=== PATIENT | female | born 1960 | race Caucasian/White ===

== ENCOUNTER 2017-11-23 06:54 | Day surgery (SDC) | payer BC ==
[2017-11-23] MEDS ORDERED: Gabapentin 300 MG Cap PO ONE (07:01)
[2017-11-23] MEDS ORDERED: Acetaminophen 500 MG Tab PO ONE (07:01)
[2017-11-23] MEDS ORDERED: Scopolamine 1.5 MG Transdermal Patch TOP ONE (07:01)
[2017-11-23] MEDS: Lactated Ringers 1,000 ML IV SCH ×2 (07:32→10:36)
[2017-11-23] MEDS ORDERED: ceFAZolin 2 GM in Premix Bag 1 BAG IV ONE (07:45)
--- NOTE | 2017-11-23 07:51 | PCM.DCSUM1 ---
Discharge Summary - Hospital Course HPI Initial Comments: s/p left tka for left knee primary osteoarthritis Diagnosis: Stroke: No - Discharge Data Discharge Date: 11/24/17 Discharge Disposition: Home, Self-Care 01 Condition: Good - Patient Summary/Data Operative Procedure(s) Performed: left tka Complications: none Consults: hospitalist service pt/ot Recommended Follow-up Testing/Procedures: 3 week f/u with Dr. Saravia - Patient Instructions Diet: Usual Diet as Tolerated Activity: Apply Ice, As Tolerated, Full Weight Bearing, No Strenuous Activities Driving: Do Not Drive Showering/Bathing: May Shower Wound/Incision Care: Keep Operative Site/Wound Site Clean and Dry Notify Provider of: Fever, Increased Pain, Swelling and Redness, Drainage, Nausea and/or Vomiting Other/Special Instructions: remove aquacell dressing on , November 30. Then replace dressing daily and keep wound clean and dry - Discharge Plan Home Medications: Home Meds Calcium Carbonate/Vitamin D3 [Calcium 600 + Vit D 200] 1 each PO DAILY 11/22/17 [History] Lisinopril/Hydrochlorothiazide [Zestoretic 20-25 mg Tablet] 1 each PO DAILY [History] Multivitamin with Minerals [Multiple Vitamin] 1 tab PO DAILY 11/22/17 [History] atorvaSTATin [Lipitor] 20 mg PO BEDTIME 11/22/17 [History] Azelastine [Optivar 0.05% Ophth Soln] 1 drop EYEBOTH BID 11/23/17 [History] Patient Handouts: Total Knee Replacement, Care After, [id number] Referrals: Carlos Manuel Saravia DO [Physician] - - General Info Functional Status: Reports: Pain Controlled - Review of Systems General: Reports: No Symptoms HEENT: Reports: No Symptoms Pulmonary: Reports: No Symptoms Cardiovascular: Reports: No Symptoms Gastrointestinal: Reports: No Symptoms Genitourinary: Reports: No Symptoms Musculoskeletal: Reports: Leg Pain, Joint Pain, Joint Swelling Skin: Reports: No Symptoms Neurological: Reports: No Symptoms Psychiatric: Reports: No Symptoms - Patient Data Vitals - Most Recent: Last Vital Signs Temp 99.5 F 11/23/17 07:28 Pulse 88 11/23/17 07:28 Resp 15 11/23/17 07:28 BP 142/78 H 11/23/17 07:28 Pulse Ox 99 11/23/17 07:28 Weight - Most Recent: 205 lb ARMEN Results - Last 24 hrs: Microbiology 11/21/17 14:23 MRSA Culture - Preliminary Nasal, Unspecified Gram Positive Cocci Med Orders - Current: Current Medications Lactated Ringer's (Ringers, Lactated) 1,000 mls @ 125 mls/hr IV ASDIRECTED MARY Last Admin: 11/23/17 07:32 Dose: 125 mls/hr Vancomycin HCl 1 gm/ Sodium (Chloride) 250 mls @ 250 mls/hr IV ONETIME ONE Stop: 11/23/17 08:44 Last Admin: 11/23/17 07:32 Dose: 250 mls/hr Sodium Chloride (Saline Flush) 10 ml FLUSH ASDIRECTED PRN PRN Reason: Keep Vein Open Discontinued Medications Acetaminophen (Tylenol Extra Strength) 1,000 mg PO ONETIME ONE Stop: 11/23/17 07:02 Last Admin: 11/23/17 07:28 Dose: 1,000 mg Gabapentin (Neurontin) 300 mg PO ONETIME ONE Stop: 11/23/17 07:02 Last Admin: 11/23/17 07:28 Dose: 300 mg Scopolamine (Transderm-Scop) 1.5 mg TOP ONETIME ONE Stop: 11/23/17 07:02 Last Admin: 11/23/17 07:31 Dose: 1.5 mg - Exam General: Reports: Alert, Oriented HEENT: Reports: Pupils Equal, Pupils Reactive, EOMI, Mucous Membr. Moist/[place] Neck: Reports: Supple, Trachea Midline Lungs: Reports: Normal Respiratory Effort Cardiovascular: Reports: Regular Rate, Regular Rhythm Extremities: Normal Capillary Refill, Joint Swelling, Limited Range of Motion, Increased Warmth Skin: Reports: Dry, Intact Wound/Incisions: Reports: Healing Well, Dressing Dry and Intact, No Drainage Neurological: Reports: No New Focal Deficit Psy/Mental Status: Reports: Alert, Normal Affect, Normal Mood Discharge Operative/Procedures - Procedures Performed Operations: left tka
[2017-11-23] MEDS ORDERED: Propofol 200 MG/20 ML SDV IV ONE (08:10)
[2017-11-23] MEDS ORDERED: Lactated Ringers 1,000 ML IV ONE (08:10)
[2017-11-23] MEDS ORDERED: Ketamine 500 mg/10 ML MDV IV ONE (08:10)
[2017-11-23] MEDS ORDERED: fentaNYL 100 MCG/2 ML SDV IV ONE (08:10)
[2017-11-23] MEDS ORDERED: Morphine PF 10 MG/10 ML SDV ONE (08:10)
[2017-11-23] MEDS ORDERED: Ketorolac 30 MG/ML SDV IVPUSH ONE (08:10)
[2017-11-23] MEDS ORDERED: Midazolam 1 MG/ML 2 ML SDV IV ONE (08:10)
[2017-11-23] MEDS ORDERED: Tranexamic Acid 1,000 MG in Sodium Chloride 0.9% 100 ML IV ONE (08:10)
[2017-11-23] MEDS ORDERED: Ropivacaine 49.25 ML, Ketorolac 30 MG, EPINEPHrine 0.5 MG, cloNIDine 80 MCG, Sodium Chl... INJECT SCH ×5 (08:12)
[2017-11-23] MEDS ORDERED: Tranexamic Acid 1,000 MG in Sodium Chloride 0.9% 100 ML IV SCH (08:15)
[2017-11-23] MEDS ORDERED: TOBRAMYCIN SULFATE ONE (09:30)
[2017-11-23] MEDS ORDERED: traMADol 50 MG Tab PO PRN (10:07)
[2017-11-23] MEDS ORDERED: Bisacodyl 5 MG Tab PO PRN (10:07)
[2017-11-23] MEDS ORDERED: Sennosides 8.6 MG Tab PO PRN (10:07)
[2017-11-23] MEDS ORDERED: Magnesium Hydroxide 400 MG/5 ML Susp 30 ML Cup PO PRN (10:07)
[2017-11-23] MEDS ORDERED: Zolpidem 5 MG Tab PO PRN (10:07)
[2017-11-23] MEDS ORDERED: Ondansetron 4 MG/2 ML SDV IVPUSH PRN (10:07)
[2017-11-23] MEDS ORDERED: diphenhydrAMINE 50 MG/ML SDV IVPUSH PRN (10:07)
[2017-11-23] MEDS ORDERED: Naloxone 0.4 MG/ML SDV IVPUSH PRN (10:07)
[2017-11-23] MEDS ORDERED: Ketorolac 30 MG/ML SDV IVPUSH PRN (10:07)
--- NOTE | 2017-11-23 10:13 | PCM.SN ---
- Free Text/Narrative Note: I personally administered 3M iodine nasally pre-op with patient for pre- operative antimicrobial prophylaxis.
[2017-11-23] MEDS ORDERED: Morphine 10 MG/ML Syringe IVPUSH PRN (11:52)
--- NOTE | 2017-11-23 13:19 | CR ---
INDICATION: Postop total knee arthroplasty on the left. LEFT KNEE: Frontal and lateral views of the left knee were obtained in recovery postop TKA on the left. Skin nathaly are noted in place. A total knee arthroplasty is noted with postop air in the joint. The TKA appears to be in good position and alignment without evidence of a complicating process. IMPRESSION: Satisfactory appearance post total knee arthroplasty on the left. JERAMY
--- NOTE | 2017-11-23 18:22 | OR ---
DATE OF OPERATION: 11/23/2017 SURGEON: Carlos Manuel Saravia DO PREOPERATIVE DIAGNOSIS: Left knee primary osteoarthritis. POSTOPERATIVE DIAGNOSIS: Left knee primary osteoarthritis. PROCEDURE: Left knee total knee arthroplasty. ANESTHESIA: Spinal anesthesia plus conscious sedation. FLUIDS: Lactated Ringer's solution. ESTIMATED BLOOD LOSS: 50 mL. COMPLICATIONS: None. SPECIMEN: None. DISCHARGE DISPOSITION: Stable to PACU. HISTORY/INDICATION FOR THE PROCEDURE: The patient was seen preoperatively in the clinic. She had failed nonoperative treatment, preoperative imaging confirmed the above mentioned diagnosis. Risks and benefits of the procedure were explained to the patient and informed consent was taken. PROCEDURE IN DETAIL: The patient was seen preoperatively by myself and the anesthesia staff in the preoperative holding area where the operative site was marked. She was brought to the operative suite by anesthesia staff where spinal anesthesia was administered plus conscious sedation. While padded tourniquet was placed on the left thigh, a sterile Ruano catheter was placed. The left lower extremity was then prepped and draped in a sterile manner. Time-out was called identifying the correct patient, the correct procedure, the correct site, and the antibiotics had been given within appropriate period of time. The left lower extremity was then exsanguinated, tourniquet was raised to 300 mmHg, and taken down at 44 minutes after cementing had taken place. I then made an incision from the tibial tubercle, at approximately 4 fingerbreadths proximal to the patella, and then made my medial parapatellar arthrotomy with a 10 blade. I then controlled the bleeding during the case with Bovie electrocautery. We then exposed the medial proximal tibia with Bovie electrocautery and then removed the infrapatellar fat pad. Very little synovium needed to be removed but I did remove some plica medially and laterally. I then used the towel clip and inverted the patella, flexed the knee, and then removed some soft tissue around the patella and then made 2 cuts on the posterior patella. This measured a 38. We drilled a 38 and then placed a 38 trial. I then reamed the distal femur and then inserted my intramedullary guide at 5 degree valgus, 9 mm distal cut. I pinned this in place, removed the intramedullary portion of the guide, and then made my distal cut. We then removed that guide and then placed a posterior condylar guide, which measured a size 5, and then placed 2 pins through the guide. This was at 3 degree valgus. I then inserted my 5 chamfer block and then protecting collaterals with sharp Hohmanns, made my anterior and posterior chamfer cuts. After this had been accomplished, I then anteriorized the tibia with a blunt Hohmann and protected it medially and laterally with sharp Hohmanns. I then used an extramedullary tibial guide with a 3-mm depth stylus and then in line with the tibial spine down to the second metatarsal and pinned this in place. I then made my proximal tibial cut after this had been accomplished. I used Weitlaner's and used this like a lamina help aid to distract the spaces and then carefully removed the medial and lateral menisci. The medial and lateral collaterals were left intact as well as the popliteus; however, after this was done, it was very lax on the lateral side even though we did feel the collaterals and popliteus. I then anteriorized the tibia again and then placed a 5 base plate, then tamped the tower in place, and then reamed and then tamped the proximal tibia. We then inserted my femoral trial and then went up to a size 5, 8-mm polyethylene trial. This provided good stability though slightly more laxity on the lateral side but it did remain stable throughout mid flexion as well as full extension. After this had been accomplished, we removed all of her components, and then copiously irrigated with saline. I then cemented my components in place and placed the size 5, 8-mm tibial polyethylene insert, out in extension while it dried. After it dried, we then removed the tibial insert and then copiously irrigated with saline. I then took time to remove any extra cement around the components. I trialed again with a size 5, 8- mm, and then inserted a final size 5, 8-mm polyethylene tibial base plate. This provided excellent stability throughout range of motion. We then irrigated again. I did place 2 #5 interrupted [id number] Ethibond's proximal and distal to the patella, followed by #1 STRATAFIX, and closed the arthrotomy. We then irrigated again and applied my periarticular injection subcutaneously and in to the quad and then closed the subcutaneous layer with #2 STRATAFIX, followed by skin nathaly, followed by Betadine-soaked Adaptic, and a sterile dressing. I then ranged it. It had excellent range of motion and good stability. We then applied an West wrap. The patient was then transferred to the hospital bed and taken to the PACU in stable condition. /[id number] BS/JOSI
[2017-11-23] MEDS: Sodium Chloride 0.9% 10 ML Syringe FLUSH PRN ×2 (18:43→20:28)
[2017-11-23] MEDS: AZELASTINE 0.05% EYEBOTH SCH (20:34)
[2017-11-23] MEDS: Acetaminophen/oxyCODONE 325-5 MG Tab PO PRN (21:54)
[2017-11-23] MEDS: Docusate Sodium 100 MG Cap PO PRN (21:55)
[2017-11-24] MEDS: Acetaminophen/oxyCODONE 325-5 MG Tab PO PRN ×2 (07:49→12:46)
[2017-11-24] MEDS: Sodium Chloride 0.9% 10 ML Syringe FLUSH PRN (08:47)
[2017-11-24] MEDS ORDERED: Aspirin 325 MG Tab.EC PO SCH (09:00)
[2017-11-24] MEDS ORDERED: Sodium Chloride 0.9% 10 ML Syringe FLUSH SCH (09:00)
[2017-11-24] MEDS: AZELASTINE 0.05% EYEBOTH SCH (10:06)
[2017-11-24] MEDS: Docusate Sodium 100 MG Cap PO PRN (12:46)
[2017-11-24 13:58] VITALS: BP 135/73
== END 2017-11-24 13:47 | disposition home or self-care (01) ==
LOC: FB.SDS 06:54 → FB.MS 11:22 → FB.SDS 11-24 13:47
PROVIDERS: ATTEND Orthopaedic Surgery
DX: M17.12 Unilateral primary osteoarthritis, left knee (principal); I10 Essential (primary) hypertension; E78.5 Hyperlipidemia, unspecified; Z90.710 Acquired absence of both cervix and uterus; Z98.890 Other specified postprocedural states; Z79.899 Other long term (current) drug therapy
CPT/HCPCS: 27447; 36415; 73560; 80053; 85025; 86850; 86900; 86901; 87070; 87077; 87186; 97110; 97161; 97165; 97530; 97535; A9270; C1776; J0171; J0735; J1885; J2250; J2270; J2704; J2795; J3010; J3260; J3370; J7030; J7050; J7120